=== PATIENT | male | born 1955 | race Caucasian/White ===

== ENCOUNTER → 2025-01-27 | Outpatient (CLI) | payer OTHER ==
[2025-01-27 12:16] LABS: HEMATOCRIT(ML) 44.4 % (37.0-53.0); MEAN CORP HGB 28.8 pg (26-34); MEAN CORP HGB CONCENTRATION 34.0 g/dL (33-36.5); MEAN CORP VOLUME 84.7 fL (78-100); RED BLOOD CELL 5.24 10^6/uL (4.50-5.90); RED CELL DISTRIBUTION WIDTH 12.5 % (11.5-14.5); WHITE BLOOD CELL 7.6 10^3/uL (4.5-11.0)
[2025-01-27 12:45] LABS: ALANINE AMINOTRANSFERASE(ML) 96.0 U/L (12-78); ALBUMIN(ML) 4.2 g/dL (3.4-5.0); CREATININE SERUM 1.15 mg/dL (0.59-1.40); EST GFR, NON-AA 63.2 (>/=60); LDL/HDL RATIO 0.9
== END | disposition home or self-care (01) ==
LOC: LAB 11:36
PROVIDERS: ATTEND Student in an Organized Health Care Education/Training Program
DX: I10 Essential (primary) hypertension (principal); M25.50 Pain in unspecified joint; E11.9 Type 2 diabetes mellitus without complications; Z12.5 Encounter for screening for malignant neoplasm of prostate; Z13.220 Encounter for screening for lipoid disorders
CPT/HCPCS: 36415; 80053; 80061; 82306; 83036; 84153; 85027; 85651; 86038; 86225; 86235; 86256; 86431